=== PATIENT | male | born 1965 | race Caucasian/White ===

== ENCOUNTER → 2017-12-02 | Outpatient (CLI) | payer OTHER ==
--- NOTE | 2017-12-02 12:53 | US ---
EXAMINATION TYPE: US scrotum with doppler. Grayscale and color Doppler Duplex imaging performed of t russell scrotum. DATE OF EXAM: 12/02/2017 COMPARISON: NONE CLINICAL HISTORY: N50.89 Disorder of the male genital organs. Pt states right testicle pain, swelling and lump x 1 month EXAM MEASUREMENTS: TESTICLES: Right Testicle: 4.9 x 2.0 x 3.4 cm Left Testicle: 4.7 x 1.8 x 3.2 cm EPIDIDYMIS HEAD: Right Epididymis: 1.1 cm Left Epididymis: 1.0 cm Doppler performed to assess for testicular vascularity; good bilateral color flow and waveforms are s een. There is no evidence of testicular torsion. Presence of hydroceles: Small amount of fluid superior aspect bilaterally Presence of varicoceles: No Small, hypoechoic area mid right testicle= 2mm in size. This appears to have a well-defined posteri or wall and increased through transmission on image 18/50. This is marked on the examination. In area of pt's palpable on the right, there is a small epi cyst= 0.6 cm and a small amount of flui d IMPRESSION: 1. In the patient's area of palpable abnormality there is a 6 mm epididymal cyst and small hydrocele. 2. Additionally there is a 2 mm hypoechoic right intratesticular lesion that may be cystic with incre ased through transmission and a well-defined posterior wall. Given the possibility of a cyst short-te rm follow-up is recommended in 3 months to determine stability as noncystic intratesticular masses ar e most commonly malignant.
== END | disposition home or self-care (01) ==
LOC: EDSEX 11:39 → RADUSWWP 11:39
PROVIDERS: ATTEND Family Medicine
DX: N50.3 Cyst of epididymis (principal); N50.89 Other specified disorders of the male genital organs; N43.3 Hydrocele, unspecified
CPT/HCPCS: 76870; 93975

== ENCOUNTER 2017-12-25 16:27 | Observation (INO) | payer OTHER ==
[2017-12-25] MEDS ORDERED: ACETAMINOPHEN TAB 500 MG TAB PO STA (18:06)
[2017-12-25] MEDS ORDERED: ceFAZolin 2,000 MG in DEXTROSE/WATER 1 50ML.BAG IVPB STA (18:10)
[2017-12-25] MEDS ORDERED: MORPHINE SULFATE 4 MG/ML SYRINGE IVP STA (18:10)
[2017-12-25] MEDS ORDERED: ONDANSETRON 4 MG/2 ML VIAL IVP STA (18:11)
[2017-12-25] MEDS ORDERED: ceFAZolin IN SWFI 2 GM/20 ML SYRINGE IVP STA (18:14)
[2017-12-25 18:37] LABS: Basophils % (A) 0 %; Eosinophils # (A) 0.1 k/uL (0-0.7); Eosinophils % (A) 1 %; HCT 47.8 % (39.0-53.0); HGB 15.7 gm/dL (13.0-17.5); Lymphocytes # (A) 1.2 k/uL (1.0-4.8); Lymphocytes % (A) 9 %; MCHC 32.9 g/dL (31.0-37.0); MCV 91.2 fL (80.0-100.0); Mean Platelet Volume 6.7; Monocytes # (A) 0.5 k/uL (0-1.0); Monocytes % (A) 4 %; Neutrophils # (A) 11.7 k/uL (1.3-7.7); Neutrophils % (A) 86 %; Platelet Count 234 k/uL (150-450); RBC 5.24 m/uL (4.30-5.90); RDW 13.4 % (11.5-15.5); WBC 13.7 k/uL (3.8-10.6)
[2017-12-25] MEDS: SODIUM CHLORIDE 0.9% 500 ML IV SCH ×2 (18:38→18:48)
[2017-12-25] MEDS ORDERED: SODIUM CHLORIDE 0.9% 1,000 ML IV STA (18:39)
[2017-12-25] MEDS ORDERED: SODIUM CHLORIDE 0.9% 1,000 ML IV SCH ×2 (18:45→20:00)
[2017-12-25 18:46] LABS: ALT 26 U/L (21-72); AST 22 U/L (17-59); Albumin 4.2 g/dL (3.5-5.0); Alkaline Phosphatase 79 U/L (38-126); Anion Gap 7 mmol/L; Blood Urea Nitrogen 11 mg/dL (9-20); Calcium 9.4 mg/dL (8.4-10.2); Carbon Dioxide 27 mmol/L (22-30); Chloride 104 mmol/L (98-107); Glucose 111 mg/dL (74-99); Sodium 138 mmol/L (137-145); Total Bilirubin 0.9 mg/dL (0.2-1.3); Total Protein 6.9 g/dL (6.3-8.2)
[2017-12-25 18:50] LABS: INR 1.1 (<1.2); Partial Thromboplastin Time 27.1 sec (22.0-30.0); Prothrombin Time 10.3 sec (9.0-12.0)
[2017-12-25] MEDS ORDERED: KETOROLAC 30 MG/ML 1 ML VIAL IVP STA (19:08)
--- NOTE | 2017-12-25 19:48 | ED ---
General Adult HPI - General Chief complaint: Dental/Oral Stated complaint: Swollen Right side of face, poss abscess tooth Time Seen by Provider: 12/25/17 17:49 Source: patient Mode of arrival: ambulatory Limitations: no limitations - History of Present Illness Initial comments: 52-year-old male presents to the emergency department with his today for chief complaint of tooth pain. Patient states he broke the tooth off a few weeks ago but the pain and swelling started yesterday. Patient states it is very painful at this time. Patient denies any shooting pains and says the pain is localized to the upper jaw. Patient denies pain in the ear or neck. Patient denies any severe headaches. Patient denies any changes of vision or pain in the eye. Patient does not have a dentist that he follows with. Patient denies any shortness of breath, chest pain, abdominal pain, nausea/ vomiting. - Related Data Allergies Allergy/AdvReac Type Severity Reaction Status Date / Time No Known Allergies Allergy Verified 12/25/17 16:53 Review of Systems ROS Statement: Those systems with pertinent positive or pertinent negative responses have been documented in the HPI. ROS Other: All systems not noted in ROS Statement are negative. Past Medical History Past Medical History: Hypertension History of Any Multi-Drug Resistant Organisms: None Reported Past Surgical History: No Surgical Hx Reported Past Psychological History: No Psychological Hx Reported Smoking Status: Current every day smoker Past Alcohol Use History: Rare Past Drug Use History: None Reported General Exam Limitations: no limitations General appearance: alert Head exam: Present: atraumatic, normocephalic, normal inspection Eye exam: Present: normal appearance, PERRL, EOMI. Absent: scleral icterus, conjunctival injection, periorbital swelling ENT exam: Present: other (Tooth 5 appears to be broken and is likely abscessed.) Neck exam: Present: normal inspection. Absent: tenderness, meningismus, lymphadenopathy Respiratory exam: Present: normal lung sounds bilaterally. Absent: respiratory distress, wheezes, rales, rhonchi, stridor Cardiovascular Exam: Present: regular rate, normal rhythm, normal heart sounds. Absent: systolic murmur, diastolic murmur, rubs, gallop, clicks GI/Abdominal exam: Present: soft, normal bowel sounds. Absent: distended, tenderness, guarding, rebound, rigid Course Vital Signs 12/25/17 12/25/17 16:49 19:23 Temperature 101.2 F H 99.6 F Pulse Rate 110 H 85 Respiratory 18 20 Rate Blood Pressure 130/87 158/79 O2 Sat by Pulse 94 L 95 Oximetry EKG Findings - EKG Comments: EKG Findings:: Sinus tachycardia, reticular rate 119, ME interval 148, QRS duration 74 Medical Decision Making - Medical Decision Making 52-year-old male presents to the emergency department for a chief complaint of tooth pain. Patient states the tooth broke off 3 weeks ago. The pain and swelling started to get worse yesterday. Patient states that today's his face is more swollen. Patient did have a fever of 101.2 and a pulse rate of 110 on presentation. Other vitals are within normal limits. CBC shows a white blood count of 13.7, neutrophils 11.7. No other abnormalities noted on CBC or CMP. Lactate within normal limits of 0.7 PTT/INR is within normal limits. Patient was started on Ancef. Pharmacy was consulted and he can have 2 g. They will reevaluate depending on kidney function after 24 hours. Patient was also bolused with a liter of fluid. Patient was given Tylenol for his fever and morphine for his pain he was later given another injection of Toradol for his pain. After talking with Dr. Mccray and discussing the possible negative outcomes of a abscessed tooth infection spreading he will be admitted with [facility]. - Lab Data Result diagrams: 12/25/17 18:10 12/25/17 18:10 Lab Results 12/25/17 12/25/17 12/25/17 Range/Units 18:10 18:10 18:10 WBC 13.7 H (3.8-10.6) k/uL RBC 5.24 (4.30-5.90) m/uL Hgb 15.7 (13.0-17.5) gm/dL Hct 47.8 (39.0-53.0) % MCV 91.2 (80.0-100.0) fL MCH 30.0 (25.0-35.0) pg MCHC 32.9 (31.0-37.0) g/dL RDW 13.4 (11.5-15.5) % Plt Count 234 (150-450) k/uL Neutrophils % 86 % Lymphocytes % 9 % Monocytes % 4 % Eosinophils % 1 % Basophils % 0 % Neutrophils # 11.7 H (1.3-7.7) k/uL Lymphocytes # 1.2 (1.0-4.8) k/uL Monocytes # 0.5 (0-1.0) k/uL Eosinophils # 0.1 (0-0.7) k/uL Basophils # 0.0 (0-0.2) k/uL PT (9.0-12.0) sec INR (<1.2) APTT (22.0-30.0) sec Sodium 138 (137-145) mmol/L Potassium 4.0 (3.5-5.1) mmol/L Chloride 104 (98-107) mmol/L Carbon Dioxide 27 (22-30) mmol/L Anion Gap 7 mmol/L BUN 11 (9-20) mg/dL Creatinine 0.70 (0.66-1.25) mg/dL Est GFR (CKD-EPI)AfAm >90 (>60 ml/min/1.73 sqM) Est GFR (CKD-EPI)NonAf >90 (>60 ml/min/1.73 sqM) Glucose 111 H (74-99) mg/dL Plasma Lactic Acid Jake 0.7 (0.7-2.0) mmol/L Calcium 9.4 (8.4-10.2) mg/dL Total Bilirubin 0.9 (0.2-1.3) mg/dL AST 22 (17-59) U/L ALT 26 (21-72) U/L Alkaline Phosphatase 79 (38-126) U/L Total Protein 6.9 (6.3-8.2) g/dL Albumin 4.2 (3.5-5.0) g/dL 12/25/17 Range/Units 18:10 WBC (3.8-10.6) k/uL RBC (4.30-5.90) m/uL Hgb (13.0-17.5) gm/dL Hct (39.0-53.0) % MCV (80.0-100.0) fL MCH (25.0-35.0) pg MCHC (31.0-37.0) g/dL RDW (11.5-15.5) % Plt Count (150-450) k/uL Neutrophils % % Lymphocytes % % Monocytes % % Eosinophils % % Basophils % % Neutrophils # (1.3-7.7) k/uL Lymphocytes # (1.0-4.8) k/uL Monocytes # (0-1.0) k/uL Eosinophils # (0-0.7) k/uL Basophils # (0-0.2) k/uL PT 10.3 (9.0-12.0) sec INR 1.1 (<1.2) APTT 27.1 (22.0-30.0) sec Sodium (137-145) mmol/L Potassium (3.5-5.1) mmol/L Chloride (98-107) mmol/L Carbon Dioxide (22-30) mmol/L Anion Gap mmol/L BUN (9-20) mg/dL Creatinine (0.66-1.25) mg/dL Est GFR (CKD-EPI)AfAm (>60 ml/min/1.73 sqM) Est GFR (CKD-EPI)NonAf (>60 ml/min/1.73 sqM) Glucose (74-99) mg/dL Plasma Lactic Acid Jake (0.7-2.0) mmol/L Calcium (8.4-10.2) mg/dL Total Bilirubin (0.2-1.3) mg/dL AST (17-59) U/L ALT (21-72) U/L Alkaline Phosphatase (38-126) U/L Total Protein (6.3-8.2) g/dL Albumin (3.5-5.0) g/dL Disposition Clinical Impression: Tooth abscess Disposition: ADMITTED IP TO THIS [facility] Condition: Good Referrals: Ernie Ramos MD [Primary Care Provider] - 1-2 days Time of Disposition: 19:48
[2017-12-25] MEDS ORDERED: ONDANSETRON 4 MG/2 ML VIAL IVP PRN (19:49)
[2017-12-25] MEDS ORDERED: NALOXONE 0.4 MG/ML 1 ML VIAL IV PRN (19:49)
[2017-12-25] MEDS: MORPHINE SULFATE/PF 10MG/10ML VL IV PRN (21:57)
[2017-12-25] MEDS: PIPERACILLIN-TAZOBACTAM 3.375 GM in DEXTROSE/WATER 1 50ML.BAG IVPB SCH (21:59)
[2017-12-26] MEDS: ACETAMINOPHEN TAB 325 MG TAB PO PRN ×2 (01:18→06:39)
[2017-12-26] MEDS: MORPHINE SULFATE/PF 10MG/10ML VL IV PRN ×2 (02:32→06:38)
[2017-12-26 02:37] VITALS: RESP 16
[2017-12-26] MEDS: PIPERACILLIN-TAZOBACTAM 3.375 GM in DEXTROSE/WATER 1 50ML.BAG IVPB SCH (04:00)
[2017-12-26] MEDS ORDERED: PIPERACILLIN-TAZOBACTAM 3.375 GM in DEXTROSE/WATER 1 50ML.BAG IVPB SCH (09:00)
--- NOTE | 2017-12-26 10:51 | XR ---
EXAMINATION TYPE: XR panorex DATE OF EXAM: 12/26/2017 COMPARISON: NONE HISTORY: Dental abscess TECHNIQUE: One view submitted FINDINGS: There is a wisdom tooth with angulation horizontal mandible. There is a lucency beneath the crown of the tooth. Lucency of the bone noted which likely is related to periodontal disease. Absces s not excluded. There are 2 additional teeth along the right mandible which demonstrate periapical wild cency for which periodontal disease and periapical abscess in the differential diagnosis. A number of the teeth are missing. No acute fracture.. IMPRESSION: Periodontal disease see above
[2017-12-26] MEDS ORDERED: MORPHINE ORAL SOLN 10 MG/5 ML CUP PO PRN (13:11)
[2017-12-26] MEDS ORDERED: DEXAMETHASONE SOD PHOSPHATE 10 MG/ML 1 ML VIAL IV STA (15:06)
[2017-12-26 15:20] VITALS: BP 130/68; PULSE 77; TEMP 98
--- NOTE | 2017-12-26 15:29 | P.DS ---
Providers Date of admission: 12/25/17 19:45 Attending physician: Zohreh Wise Consults: 12/25/17 19:49 Consult Physician Stat Consulting Provider: Bright Bajwa Consult Reason/Comments: dental abscess, fever Do you want consulting provider notified?: Yes Primary care physician: Ernie Ramos [facility] Course: Please refer to my HPI Patient Condition at Discharge: Good Plan - Discharge Summary Discharge Rx Participant: No New Discharge Prescriptions: New Amoxic-Pot Clav 875-125Mg [Augmentin 875-125] 1 tab PO Q12HR #14 tablet Ibuprofen 400 mg PO Q6HR PRN #30 tablet PRN Reason: Pain Ranitidine HCl [Zantac] 150 mg PO BID #14 tab No Action traZODone HCL 150 mg PO HS Terbinafine [LamISIL] 250 mg PO DAILY HYDROcodone/APAP 10-325MG [[place] 10-325] 1 tab PO TID PRN PRN Reason: Pain Gabapentin [Neurontin] 100 mg PO BID Losartan-Hctz 50-12.5 mg [Hyzaar 50-12.5] 1 tab PO DAILY Niacin 250 mg PO DAILY Discharge Medication List Gabapentin [Neurontin] 100 mg PO BID 12/25/17 [History] HYDROcodone/APAP 10-325MG [[place] 10-325] 1 tab PO TID PRN 12/25/17 [History] Losartan-Hctz 50-12.5 mg [Hyzaar 50-12.5] 1 tab PO DAILY 12/25/17 [History] Niacin 250 mg PO DAILY 12/25/17 [History] Terbinafine [LamISIL] 250 mg PO DAILY 12/25/17 [History] traZODone HCL 150 mg PO HS 12/25/17 [History] Amoxic-Pot Clav 875-125Mg [Augmentin 875-125] 1 tab PO Q12HR #14 tablet [Rx] Ibuprofen 400 mg PO Q6HR PRN #30 tablet 12/26/17 [Rx] Ranitidine HCl [Zantac] 150 mg PO BID #14 tab 12/26/17 [Rx] Follow up Appointment(s)/Referral(s): Ernie Ramos MD [Primary Care Provider] - 3 Days Discharge Disposition: HOME SELF-CARE
--- NOTE | 2017-12-26 15:29 | P.HPIM ---
History of Present Illness 52-year-old male came in with tooth pain for about a month. Patient states he broke the tooth off a few weeks ago but the pain and swelling started yesterday. Patient states it is very painful at this time. Patient denies any shooting pains and says the pain is localized to the upper jaw. Patient denies pain in the ear or neck. Patient denies any severe headaches. Patient denies any changes of vision or pain in the eye. Patient does not have a dentist that he follows with. Patient denies any shortness of breath, chest pain, abdominal pain, nausea/vomiting. Patient is found to have dental abscess in the right maxillary area along with the kidneys to the right mandible. Patient was a started on Zosyn. Maxillofacial surgery was consulted. Patient will need the tooth extraction either inpatient or outpatient and will be discharged after that with Augmentin for 7 days. Review of Systems REVIEW OF SYSTEMS: CONSTITUTIONAL: No fever, no malaise, no fatigue. HEENT: No recent visual problems or hearing problems. Denied any sore throat. CARDIOVASCULAR: No chest pain, orthopnea, PND, no palpitations, no syncope. PULMONARY: No shortness of breath, no cough, no hemoptysis. GASTROINTESTINAL: No diarrhea, no nausea, no vomiting, no abdominal pain. Normoactive bowel sounds. NEUROLOGICAL: No headaches, no weakness, no numbness. HEMATOLOGICAL: Denies any bleeding or petechiae. GENITOURINARY: Denies any burning micturition, frequency, or urgency. MUSCULOSKELETAL/RHEUMATOLOGICAL: Denies any joint pain, swelling, or any muscle pain. ENDOCRINE: Denies any polyuria or polydipsia. The rest of the 14-point review of systems is negative. Past Medical History Past Medical History: Hypertension Additional Past Medical History / Comment(s): Low back pain, DDD History of Any Multi-Drug Resistant Organisms: None Reported Past Surgical History: No Surgical Hx Reported Smoking Status: Current every day smoker - Past Family History Father History Unknown: Yes Additional Family Medical History / Comment(s): Father is and pt states he does not know his medical hx. Mother Family Medical History: Hypertension Medications and Allergies Home Medications Medication Instructions Recorded Confirmed Type Gabapentin [Neurontin] 100 mg PO BID 12/25/17 12/25/17 History HYDROcodone/APAP 10-325MG [[place] 1 tab PO TID PRN 12/25/17 12/25/17 History 10-325] Losartan-Hctz 50-12.5 mg [Hyzaar 1 tab PO DAILY 12/25/17 12/25/17 History 50-12.5] Niacin 250 mg PO DAILY 12/25/17 12/25/17 History Terbinafine [LamISIL] 250 mg PO DAILY 12/25/17 12/25/17 History traZODone HCL 150 mg PO HS 12/25/17 12/25/17 History Amoxic-Pot Clav 875-125Mg 1 tab PO Q12HR #14 tablet 12/26/17 Rx [Augmentin 875-125] Ibuprofen 400 mg PO Q6HR PRN #30 tablet 12/26/17 Rx Ranitidine HCl [Zantac] 150 mg PO BID #14 tab 12/26/17 Rx Allergies Allergy/AdvReac Type Severity Reaction Status Date / Time No Known Allergies Allergy Verified 12/25/17 21:15 Physical Exam Vitals: Vital Signs Temp Pulse Pulse Resp BP BP Pulse Ox 12/26/17 15:00 98 F 77 16 130/68 98 12/26/17 07:30 98.5 F 72 16 137/76 95 12/26/17 06:30 101.0 F H 86 16 143/85 96 12/26/17 02:30 99.1 F 86 16 135/89 100 12/26/17 01:00 101.6 F H 12/25/17 23:00 100.6 F H 70 19 132/83 96 12/25/17 22:00 78 16 139/79 95 12/25/17 21:35 98.6 F 68 20 131/71 96 12/25/17 19:23 99.6 F 85 20 158/79 95 12/25/17 16:49 101.2 F H 110 H 18 130/87 94 L Intake and Output 12/26/17 12/26/17 12/26/17 06:59 14:59 22:59 Intake Total 587 Balance 587 Intake: Intake, IV Titration 350 Amount Piperacillin-Tazobactam 3 50 .375 gm In Dextrose/Water 1 50ml.bag @ 12.5 mls/hr IVPB Q8HR [facility] Rx#: [id number] Sodium Chloride 0.9% 1, 300 000 ml @ 75 mls/hr IV . [id number] [facility] Rx#:[id number] Oral 237 PHYSICAL EXAMINATION: GENERAL: The patient is alert and oriented x3, not in any acute distress. Well developed, well nourished. HEENT: Pupils are round and equally reacting to light. EOMI. No scleral icterus. No conjunctival pallor. Normocephalic, atraumatic. No pharyngeal erythema. No thyromegaly. Patient does have multiple Ingrid's teeth with the passable abscess in the right maxilla CARDIOVASCULAR: S1 and S2 present. No murmurs, rubs, or gallops. PULMONARY: Chest is clear to auscultation, no wheezing or crackles. ABDOMEN: Soft, nontender, nondistended, normoactive bowel sounds. No palpable organomegaly. MUSCULOSKELETAL: No joint swelling or deformity. EXTREMITIES: No cyanosis, clubbing, or pedal edema. NEUROLOGICAL: Gross neurological examination did not reveal any focal deficits. SKIN: No rashes. Results CBC & Chem 7: 12/25/17 18:10 12/25/17 18:10 Labs: Abnormal Lab Results - Last 24 Hours (Table) 12/25/17 12/25/17 Range/Units 18:10 18:10 WBC 13.7 H (3.8-10.6) k/uL Neutrophils # 11.7 H (1.3-7.7) k/uL Glucose 111 H (74-99) mg/dL Thrombosis Risk Factor Assmnt - Choose All That Apply Any of the Below Risk Factors Present?: Yes Each Factor Represents 1 point: Age 41-60 years, Obesity (BMI >25) Other Risk Factors: No Other congenital or acquired thrombophilia - If yes, enter type in comment: No Thrombosis Risk Factor Assessment Total Risk Factor Score: 2 Thrombosis Risk Factor Assessment Level: Low Risk Assessment and Plan Plan: -Dental abscesses and multiple carious teeth: Patient is an above-mentioned antibiotics after tooth extraction patient probably can be discharged most probably today. According cessation counseling was provided. -Hypertension -Chronic low back pain For above-mentioned chronic medical problems patient will be resumed and continued on home medications
--- NOTE | 2017-12-26 18:25 | CONS ---
CONSULTATION DATE OF CONSULTATION: 12/26/2017 CHIEF COMPLAINT: "My face is swollen." HISTORY OF PRESENT ILLNESS: The patient is a 52-year-old male who has had intermittent dental pain to the right maxillary quadrant. The patient states that on 12/25 the pain was acute and the right paranasal region started to swell. This progressed throughout the day and he presented to the ER for evaluation and treatment. The patient was evaluated in the ER and was then admitted and started on IV Zosyn. The patient is resting currently in bed, stating that his pain level is 5 out of 10. PAST MEDICAL HISTORY: Significant for hypertension and GERD. MEDICATIONS: Medications include: 1. Trazodone. 2. Losartan. 3. Ranitidine. ALLERGIES: THE PATIENT DENIES ANY ALLERGIES. The patient states that he smokes. He denies drug abuse. 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 PHYSICAL EXAMINATION: The patient is afebrile and is in mild distress. His vital signs are stable. His white count was elevated at 13.7 and his glucose was slightly elevated. Otherwise his labs were normal. Panoramic x-ray revealed carious teeth with periapical radiolucencies. Physical examination reveals mild to moderate soft tissue swelling of the right mid face in the paranasal region. The area is very tender to palpation. There is no cervical lymphadenopathy. There is no thyromegaly. His eyes exhibit PERRLA. There are no facial masses or . Intraoral examination reveals dentition in poor repair. There are multiple fractured teeth and remaining roots. The right anterior vestibule is swollen and fluctuant adjacent to tooth #6. There are no other intraoral lesions. There is no pharyngeal swelling. ASSESSMENT: 1. Right mid face cellulitis and abscess secondary to odontogenic source. 2. Necrotic tooth #6. 3. Caries and multiple dental roots. PLAN: The patient can be discharged on Augmentin and analgesics and he will follow up in my office on 12/27 at 1:30 p.m. n.p.o. and with a ride for the extraction of tooth #6 and drainage of the necessary space. The patient was also asked to maintain a soft diet prior to being n.p.o. and to apply heat to the right mid face with gentle massage. The patient is to sleep with the head of the bed elevated 30 degrees. MMODL / IJN: [id number] /
== END 2017-12-26 17:26 | disposition home or self-care (01) ==
LOC: EC 16:27 → 5MS5E 19:45 → 3SUR 12-26 05:30
PROVIDERS: ADMIT Internal Medicine; ATTEND Internal Medicine
DX: L03.211 Cellulitis of face (principal); K04.1 Necrosis of pulp; K02.9 Dental caries, unspecified; K02.7 Dental root caries; K04.7 Periapical abscess without sinus; S02.5XXA Fracture of tooth (traumatic), initial encounter for closed fracture; R73.09 Other abnormal glucose; F17.200 Nicotine dependence, unspecified, uncomplicated; I10 Essential (primary) hypertension; G89.29 Other chronic pain; M54.5 Low back pain; E66.9 Obesity, unspecified; Z68.28 Body mass index [BMI] 28.0-28.9, adult; K21.9 Gastro-esophageal reflux disease without esophagitis; Z82.49 Family history of ischemic heart disease and other diseases of the circulatory system; Z79.899 Other long term (current) drug therapy
CPT/HCPCS: 99284 ×2; 96375 ×6; 96361 ×8; 96365 ×2; 96366 ×6; 96376 ×5; 36415; 80053; 83605; 85025; 85610; 85730; 87040; 70355; G0378 ×2; J2270 ×3; J1100; J2405; J1885; J2543 ×2; J0690

== ENCOUNTER → 2019-12-17 | Outpatient (CLI) | payer OTHER ==
--- NOTE | 2019-12-17 11:58 | ECHOS ---
STRESS ECHOCARDIOGRAM INDICATIONS: Chest pain. BASELINE HEART RATE: 62 BASELINE BLOOD PRESSURE: 96/57 MAXIMUM HEART RATE: 143 MAXIMUM BLOOD PRESSURE: 149/59 85% MPHR: 139 100% MPHR: 164 METS: 12.1 MAXIMUM STAGE REACHED: 4 TOTAL EXERCISE TIME: 10:30 CLINICAL INFORMATION: Baseline EKG shows sinus rhythm, normal axis, normal intervals with poor R-wave progression. Patient exercised on Александр protocol for a total of 10.5 minutes achieving 12 METS, 87% of predicted maximal heart rate without chest pain or diagnostic ST- segment depression. Baseline echo shows normal left ventricular size wall motion systolic function. Postexercise there is hypokinesis involving the anteroseptum. CONCLUSION: 1. Good exercise tolerance. 2. Negative stress test by EKG criteria. 3. Abnormal stress echo showing stress-induced ischemia in LAD distribution. MMODL / IJN: [id number] /
== END | disposition home or self-care (01) ==
LOC: RADNMMAIN 08:52
PROVIDERS: ATTEND Family Medicine
DX: I25.89 Other forms of chronic ischemic heart disease (principal)
CPT/HCPCS: 93351

== ENCOUNTER → 2019-12-18 | Outpatient (CLI) | payer OTHER ==
[2019-12-18 10:38] LABS: HCT 51.7 % (39.0-53.0); HGB 16.6 gm/dL (13.0-17.5); MCH 30.6 pg (25.0-35.0); MCHC 32.2 g/dL (31.0-37.0); MCV 95.2 fL (80.0-100.0); Mean Platelet Volume 6.8; Platelet Count 207 k/uL (150-450); RBC 5.43 m/uL (4.30-5.90); RDW 13.1 % (11.5-15.5); WBC 6.4 k/uL (3.8-10.6)
[2019-12-18 11:00] LABS: African American GFR (CKD) >90 (>60 ml/min/1.73 sqM); Anion Gap 6 mmol/L; Blood Urea Nitrogen 14 mg/dL (9-20); Carbon Dioxide 26 mmol/L (22-30); Chloride 106 mmol/L (98-107); Non-African American GFR(CKD) >90 (>60 ml/min/1.73 sqM); Potassium 4.5 mmol/L (3.5-5.1); Sodium 138 mmol/L (137-145)
== END ==
LOC: LABPAT 09:46
PROVIDERS: ATTEND Internal Medicine Cardiovascular Disease
DX: Z01.818 Encounter for other preprocedural examination (principal); R07.2 Precordial pain
CPT/HCPCS: 36415; 80051; 82565; 84520; 85027

== ENCOUNTER 2019-12-20 | Day surgery (SDC) | payer OTHER | END 2019-12-21 12:04 | disposition home or self-care (01) | CPT/HCPCS: 93458; 80061; 80048; C9600; C1769 ×3; C1760; C1887 ×2; C1725 ×3; C1894; C1874; S4990 ×2; J2250; J2001; J0583; Q9967 ×2 ==